=== PATIENT | female | born 1960 | race Caucasian/White ===

== ENCOUNTER 2018-07-07 13:27 | Emergency (ER) | payer BC ==
[2018-07-07] MEDS ORDERED: SODIUM CHLORIDE 0.9% 1,000 ML IV ONE (13:55)
[2018-07-07 14:40] LABS: Basophils # (A) 0.1 k/uL (0-0.2); Basophils % (A) 1 %; Eosinophils # (A) 0.3 k/uL (0-0.7); Eosinophils % (A) 2 %; HCT 41.2 % (34.0-46.0); HGB 13.5 gm/dL (11.4-16.0); Lymphocytes # (A) 2.2 k/uL (1.0-4.8); Lymphocytes % (A) 15 %; MCH 28.3 pg (25.0-35.0); MCHC 32.9 g/dL (31.0-37.0); MCV 86.1 fL (80.0-100.0); Mean Platelet Volume 7.2; Monocytes # (A) 0.7 k/uL (0-1.0); Monocytes % (A) 5 %; Neutrophils # (A) 11.7 k/uL (1.3-7.7); Neutrophils % (A) 77 %; Platelet Count 381 k/uL (150-450); RBC 4.78 m/uL (3.80-5.40); RDW 12.4 % (11.5-15.5); WBC 15.2 k/uL (3.8-10.6)
[2018-07-07 14:50] LABS: ALT 23 U/L (9-52); AST 25 U/L (14-36); Albumin 3.8 g/dL (3.5-5.0); Alkaline Phosphatase 74 U/L (38-126); Anion Gap 10 mmol/L; Blood Urea Nitrogen 12 mg/dL (7-17); Calcium 10.1 mg/dL (8.4-10.2); Carbon Dioxide 24 mmol/L (22-30); Chloride 106 mmol/L (98-107); Glucose 89 mg/dL (74-99); Sodium 140 mmol/L (137-145); Total Bilirubin 0.5 mg/dL (0.2-1.3); Total Protein 7.1 g/dL (6.3-8.2)
[2018-07-07 14:59] LABS: Potassium 4.3 mmol/L (3.5-5.1)
--- NOTE | 2018-07-07 15:05 | XR ---
EXAMINATION TYPE: XR KUB DATE OF EXAM: 07/07/2018 COMPARISON: None INDICATION: Pain, diarrhea x1 week TECHNIQUE: Single view abdomen frontal upright view FINDINGS: There is a normal bowel gas pattern. Psoas margins are normal. No organomegaly is present. No free air is evident. No suspicious air-fluid levels are present. No suspicious calcifications are evident. IMPRESSION: 1. Unremarkable Abdomen
--- NOTE | 2018-07-07 15:58 | ED ---
General Adult HPI - General Chief complaint: Nausea/Vomiting/Diarrhea Stated complaint: diarrhea Source: patient, RN notes reviewed, old records reviewed Mode of arrival: ambulatory Limitations: no limitations - History of Present Illness Initial comments: 58-year-old female patient presents to ED after approximately 10 days of diarrhea. Patient states that she was evaluated by her primary care physician on Sunday 07/01, who encouraged her to follow the BRAT diet. Patient has followed the Nick diet, but continues to have diarrhea. Patient states that the diarrhea she's been present for approximately 10 days is loose stool that is partially forms. On average about 5 times per day, sometimes more. Patient denies bright red blood, or black tarry stools. Patient does report that appears that there is some mucus in the stool. Patient does not have a history of intra-abdominal pathology. Patient has been decreasing her by mouth intake in order to attempt to decrease the amount of diarrhea she's been having. Reports she is feeling moderately fatigued today. Patient has taken Imodium 2- 3 times in the last week, most recently yesterdayhad some relief. Patient was on approximately 3 weeks of cleomycin for a tooth infection that has now resolved after a root canal, has not been on antibiotics over a month. Patient states that she has had some intermittent dull left lower quadrant pain that has been relieved with defecation. Abdomen is currently nontender at now. Patient denies fever/chills, nausea/vomiting. Systemic: Pt denies fatigue, myalgia, fever/chills, rash. Pt denies weakness, night sweats, weight loss. Neuro: Pt denies headache, visual disturbances, syncope or pre-syncope. HEENT: Pt denies ocular discharge or irritation, otalgia, rhinorrhea, pharyngitis or notable lymphadenopathy. Cardiopulmonary: Pt denies chest pain, SOB, heart palpitations, dyspnea on exertion. : Pt denies dysuria, burning w/ urination, frequency/urgency. Denies new onset urinary or bowel incontinence. MSK: Pt denies myalgia, loss of strength or function in extremities. - Related Data Home Medications Medication Instructions Recorded Confirmed Levothyroxine Sodium [Synthroid] 50 mcg PO DAILY 07/07/18 07/07/18 Multivitamins, Thera [Multivitamin 1 tab PO DAILY 07/07/18 07/07/18 (formulary)] Previous Rx's Medication Instructions Recorded Ondansetron [Zofran] 4 mg PO Q8HR PRN #15 tab 07/07/18 Allergies Allergy/AdvReac Type Severity Reaction Status Date / Time Sulfa (Sulfonamide Allergy Rash/Hives Verified 07/07/18 14:13 Antibiotics) Review of Systems ROS Statement: Those systems with pertinent positive or pertinent negative responses have been documented in the HPI. ROS Other: All systems not noted in ROS Statement are negative. Past Medical History Past Medical History: Thyroid Disorder History of Any Multi-Drug Resistant Organisms: None Reported Past Surgical History: Section Past Psychological History: No Psychological Hx Reported Smoking Status: Never smoker Past Alcohol Use History: None Reported Past Drug Use History: None Reported General Exam - General Exam Comments Initial Comments: Constitutional: NAD, AOX3, Pt has pleasant affect. HEENT: NC/AT, trachea midline, neck supple, no lymphadenopathy. Posterior pharynx non erythematous, without exudates. External ears appear normal, without discharge. Mucous membranes moist. Eyes PERRLA, EOM intact. There is no scleral icterus. No pallor noted. Cardiopulmonary: RRR, no murmurs, rubs or gallops, no JVD noted. Lungs CTAB in anterior and posterior braun. No peripheral edema. Abdominal exam: Abdomen soft and non-distended. Abdomen non-tender to palpation in all 4 quadrants. Bowel sounds active in LLQ. No hepatosplenomegaly. No ecchymoses. Neuro: CN II-XII grossly intact. Limitations: no limitations Course Vital Signs 07/07/18 13:30 Temperature 97.4 F L Pulse Rate 76 Respiratory 18 Rate Blood Pressure 152/91 O2 Sat by Pulse 100 Oximetry Medical Decision Making - Medical Decision Making 58-year-old female presents to ED with 10 days of diarrhea. Patient was previously evaluated by her PCP, encouraged dietary modifications and a stool sample yesterday to test for C. diff. Patient does have a recent history of anabiotic use. Symptoms described as nonbloody, not black or tarry, some mucus and be present. Physical exam patient says benign, no tenderness of abdomen, no ecchymoses. Laboratory investigations were conducted including a CBC, CMP. The CBC displayed a leukocytosis of 15.2, no other abnormalities. CMP is within normal limits. Patient is not able to provide a stool sample. Has not had diarrhea since presenting to the ER. Discussed with patient that the leukocytosis was likely reactive to the diarrhea and that the diarrhea she was experiencing is likely due to a viral illness and resolving. Vital signs are stable, no signs of infection. Patient was given 1 L of fluid, but much more energized afterwards. Patient to be discharged home with dietary modifications , continue to follow up with PCP in regards the stool sample. Patient prescribed Zofran in case she has any nausea. Patient to return to ED if new Symptoms Develop Including Abdominal Pain, Fevers Chills, Nausea Diarrhea or Any Other Complaints. Patient to Follow up with PCP in 1-2 Days. Case Discuss[address] with Dr. Ibrahim. Disposition Clinical Impression: Viral gastroenteritis Disposition: HOME SELF-CARE Condition: Good Instructions: Acute Diarrhea (ED) Additional Instructions: Patient to adhere to previously discussed treatment plan and will take medication(s) as directed. Patient to follow up with PCP in 1-2 days. Patient to return to ED if symptoms do not improve. Prescriptions: Ondansetron [Zofran] 4 mg PO Q8HR PRN #15 tab PRN Reason: Nausea Is patient prescribed a controlled substance at d/c from ED?: No Referrals: Nancy Louis DO [Primary Care Provider] - 1-2 days Time of Disposition: 16:05
[2018-07-07 16:02] VITALS: BP 128/84; PULSE 65; RESP 20; TEMP 98
== END 2018-07-07 16:19 | disposition home or self-care (01) ==
LOC: EC 13:27
DX: A08.4 Viral intestinal infection, unspecified (principal); E07.9 Disorder of thyroid, unspecified; Z79.899 Other long term (current) drug therapy; Z88.2 Allergy status to sulfonamides
CPT/HCPCS: 36415; 74018; 80053; 85025; 96360; 99284